=== PATIENT | female | born 1965 | race Caucasian/White ===

== ENCOUNTER 2018-04-05 15:38 | Emergency (ER) | payer OTHER, SELFPAY ==
[2018-04-05 15:40] VITALS: BP 153/111; PULSE 101; RESP 20; TEMP 36.4; O2SAT 98; BMI 20.8
--- NOTE | 2018-04-05 15:55 | ED.DCSUM_ITS ---
- ER Visit Summary Date of Service: 04/05/18 Chief Complaint: Anxiety History of Present Illness: The patient is a 52 F with a history of panic attacks and anxiety. She reports increasing symptoms over the last few days. This feels like her prior panic and anxiety that she dealt with with the of her grandchild. She was on Celexa for several years, and it seemed to help. She was doing better and stopped Celexa about 2 years ago. She denies any history of other mental health illness. She denies any history of suicidal thoughts currently or in the past. Denies any history of hospitalization for psychiatric illness. She is not currently taking anything for this. She denies any medical complaints like pain or breathing issues. Physical Examination: Blood pressure and heart rate are elevated. Otherwise vitals unremarkable. The patient appears anxious but otherwise in no acute distress. She is alert and oriented and appropriate for the situation. Head and neck atraumatic. Cranial nerves grossly intact. Heart regular. Lungs clear. Calves soft and supple. Skin appears normal. Test Results: None indicated emergently Emergency Department Course and Treatment: Patient presents with her anxiety and panic symptoms. She has no other medical complaints. She has a prior history of this. There is no indication for hospitalization or more aggressive treatment. We will restart her Celexa. She may also take Vistaril as needed as the Celexa will take several weeks to take effect. Patient may also taper her Celexa as she restarts it because it may make her symptoms worse. She should call 911 or return for any thoughts of suicide or harming herself. She should return if she has any medical complaints or other associated symptoms. The patient voiced understanding and agreement. She will call her PCP later today or first thing on Sunday to schedule a follow-up appointment. Treatment Plan: As above Disposition: Discharged Impression: 1. Mood disorder This note was generated with [employer] dictation software. It may contain incorrect words, spelling, and punctuation that were not noted in review of the chart prior to signing ED Disposition - Plan for ED Patient: Chief Complaint: Anxiety Referrals: Diego Maya MD [Primary Care Provider] -
--- NOTE | 2018-04-05 15:55 | ED.DEP ---
ED Disposition - Plan for ED Patient: Chief Complaint: Anxiety Instructions: Understanding Anxiety Disorders Prescriptions: Citalopram Hydrobromide [Celexa] 20 mg PO DAILY #30 tab hydrOXYzine pamoate capsule [Vistaril] 25 mg PO TID PRN PRN #10 cap PRN Reason: Anxiety Referrals: Diego Maya MD [Primary Care Provider] -
[2018-04-05 16:12] VITALS: BP 140/94; PULSE 92; RESP 18; O2SAT 97
== END 2018-04-05 16:14 | disposition home or self-care (01) ==
LOC: ED 16:02
PROVIDERS: Emergency Provider Emergency Medicine; Family Provider Family Medicine; PCP Family Medicine
DX: F39 Unspecified mood [affective] disorder (principal); F41.9 Anxiety disorder, unspecified; F32.9 Major depressive disorder, single episode, unspecified
CPT/HCPCS: 99282

== ENCOUNTER 2018-04-07 12:33 | Emergency (ER) | payer OTHER, SELFPAY ==
[2018-04-07 12:34] VITALS: BP 150/92; PULSE 106; RESP 22; TEMP 36.4; O2SAT 99; BMI 20.5
--- NOTE | 2018-04-07 13:02 | ED.VISSUMM ---
- ER Visit Summary Date of Service: 04/07/18 Chief Complaint: Anxiety History of Present Illness: The patient is a 52 F with anxiety symptoms. The patient has a history of anxiety and panic. Her symptoms started about an hour prior to arrival and are almost gone at this point. No suicidal or homicidal thoughts. This is similar to her prior panic attacks. No other symptoms like chest pain, shortness of breath, nausea, vomiting, sweats, or lightheadedness. Patient says he has a lot of stress in her life. She was seen here previously by me several days ago. She had similar symptoms and was restarted on Celexa. I would not expect that her medications have taken effect yet. She also was prescribed hydroxyzine. She took one dose, but it did not help. Physical Examination: Tachycardic at 106. Blood pressure 150/92. Otherwise vitals normal. Afebrile. Alert and oriented. No acute distress. Sitting comfortably. Heart regular. Lungs clear. Abdomen soft. No focal or lateralizing neurologic abnormalities grossly. Thyroid nontender and normal size. Skin appears normal. Patient reports anxiety and is slightly jumpy. Test Results: None indicated Emergency Department Course and Treatment: Symptoms sound similar to prior anxiety and panic. No new or concerning symptoms like chest pain or shortness of breath. No other concerning findings on exam. I believe she is appropriate for outpatient care. Continue her Celexa. Discontinue hydroxyzine. Her prescription database report was negative and she was started on a short course of Klonopin. Risks of this were discussed. Patient will call her PCP tomorrow to arrange follow-up. Return for any new or worsening issues. Treatment Plan: As above Disposition: Discharged Impression: 1. Panic attack This note was generated with [employer] software. It may contain incorrect words, spelling, and punctuation that were not noted in review of the chart prior to signing ED Disposition - Plan for ED Patient: Chief Complaint: Anxiety Referrals: Diego Maya MD [Primary Care Provider] -
--- NOTE | 2018-04-07 13:06 | ED.DEP ---
ED Disposition - Plan for ED Patient: Chief Complaint: Anxiety Instructions: ED Panic Attack Prescriptions: Clonazepam [Clonazepam Tab.Rapdis] 0.25 mg PO BID PRN PRN 3 Days #6 tab.rapdis PRN Reason: Anxiety Referrals: Diego Maya MD [Primary Care Provider] -
[2018-04-07 14:07] VITALS: BP 142/78; PULSE 82; RESP 16; O2SAT 98
== END 2018-04-07 14:08 | disposition home or self-care (01) ==
LOC: ED 13:31
PROVIDERS: Emergency Provider Emergency Medicine; Family Provider Family Medicine; PCP Family Medicine
DX: F41.0 Panic disorder [episodic paroxysmal anxiety] (principal); F32.9 Major depressive disorder, single episode, unspecified; Z79.899 Other long term (current) drug therapy
CPT/HCPCS: 99282

== ENCOUNTER 2021-05-20 05:13 | Emergency (ER) | payer OTHER, SELFPAY ==
[2021-05-20 05:13] VITALS: BP 179/83; PULSE 87; RESP 16; TEMP 36.6; O2SAT 99; BMI 21.7
--- NOTE | 2021-05-20 05:25 | ED.VIS.DENTA ---
HPI History of Present Illness Chief Complaint: Dental Narrative Narrative: Patient presents with left upper mouth pain and swelling. She has poor dentition and she has significant anxiety about dentists. She has no fever or chills. Pain is achy. PFSH PFS Home Medications amoxicillin 500 mg PO TID #20 cap 05/20/21 [Rx Last Taken Unknown] Allergy/AdvReac Type Severity Reaction Status Date / Time No Known Allergies Allergy Verified 05/20/21 05:15 Social History Smoking Status: Never smoker ROS ROS ED ROS Narrative Past medical history: Reviewed Medications: Reviewed Social history: Noncontributory Review of systems: All systems negative except as indicated General: No fever Dental: Dental pain as in HPI ENT: No upper airway congestion, normal voice Neck: No neck pain Hematologic: No easy bleeding or easy bruising EXAM Physical Exam Narrative Exam Narrative: Physical exam General: Patient appears anxious. Head: Normocephalic, Atraumatic Dental: Poor dentition, left upper incisor and first and second molar tenderness, there is facial swelling but no obvious drainable abscess ENT: Moist mucous membranes. Normal soft palate Neck: Supple, Nontender, No lymphadenopathy Cardiovascular: Normal pulses Skin: Normal color, No rash Neurological: No facial droop Const Vital Signs: 05/20/21 05:13 Temperature 97.8 F Temperature Source Oral Pulse Rate 87 Respiratory Rate 16 Blood Pressure 179/83 H Blood Pressure Mean 115 Pulse Ox 99 Oxygen Delivery Method Room Air MDM MDM MDM Narrative Medical decision making narrative: Patient will be treated with antibiotics and discharge. Discharge Plan Triage Chief Complaint: Dental ED Provider: Ankur Ordoñez Dx/Rx/DC Orders Clinical Impression: Dental infection Instructions: Dental Abscess Prescriptions: New amoxicillin 500 mg capsule 500 mg PO TID Qty: 20 RF: 0 Primary Care Provider: Diego Maya Referrals: Diego Maya MD [Primary Care Provider] - Activity Restrictions/Additional Instructions: Follow-up with your dentist in the next 2 to 3 days Disposition Disposition: Home, Self Care
[2021-05-20] MEDS: AMOXICILLIN 500 MG CAPSULE PO (05:29)
[2021-05-20 05:38] VITALS: BP 179/83; PULSE 87; RESP 16; TEMP 36.6; O2SAT 99
== END 2021-05-20 05:38 | disposition home or self-care (01) ==
PROVIDERS: Emergency Provider Emergency Medicine
DX: K04.7 Periapical abscess without sinus (principal)
CPT/HCPCS: 99282

== ENCOUNTER 2023-01-13 18:17 | Emergency (ER) | payer OTHER, SELFPAY ==
[2023-01-13 18:18] VITALS: BP 208/103; PULSE 80; RESP 16; TEMP 36.1; O2SAT 100; BMI 20.7
[2023-01-13 18:27] VITALS: PULSE 76; RESP 18; O2SAT 100
--- NOTE | 2023-01-13 18:44 | EDS_ITS ---
HPI History of Present Illness Chief Complaint: Poisoning Detail of Chief Complaint: Ingestion Informant: patient Narrative Narrative: Patient presents after splashing some cleaning solution in her mouth. She was cleaning with Fabul[place] antibacterial cleaning solution. She dropped the bottle and some of the solution splashed into her mouth. She rinsed her mouth with water. She is anxious and describes some mild burning in her mouth at this time. [facility] Medical History Anxiety Home Medications NK 01/13/23 [History Last Taken Unknown] Allergy/AdvReac Type Severity Reaction Status Date / Time No Known Allergies Allergy Verified 01/13/23 18:24 Social History Smoking Status: Never smoker ROS ROS ED Constitutional Constitutional ED: Denies chills or fever(s) Eyes Eyes: Denies change in vision or discharge from eye(s) ENT ENT ED: Reports other Details: Mild burning in mouth ; Denies discharge from eye(s), rhinorrhea or sore throat Cardiovascular Cardiovascular: Denies chest pain or palpitations Respiratory/Chest Respiratory/Chest: Denies cough or dyspnea Gastrointestinal Gastrointestinal: Denies abdominal pain, nausea or vomiting Genitourinary Genitourinary ED: Denies dysuria Musculoskeletal Musculoskeletal: Denies back pain or extremity pain Integumentary Denies Abrasions or rash Neurologic Neurologic: Denies headache(s) or weakness Psychiatric Psychiatric: Reports anxiety; Denies depression Endocrine Endocrinology: Denies polydipsia or polyuria Allergic/Immunologic Allergic/Immunologic ED: Denies lip swelling or urticaria EXAM Physical Exam Narrative Exam Narrative: Patient is anxious but no acute distress. Speaking full sentences and tolerating secretions well. Const Vital Signs: 01/13/23 18:18 01/13/23 18:25 01/13/23 18:27 Temperature 97.0 F L Temperature Source Temporal Pulse Rate 80 76 Respiratory Rate 16 18 Respiratory Effort Normal Non-Labored Respiratory Pattern Normal Blood Pressure 208/103 H Blood Pressure Mean 138 Pulse Ox 100 100 Oxygen Delivery Method Room Air Room Air 01/13/23 19:24 Temperature Temperature Source Pulse Rate 74 Respiratory Rate 16 Respiratory Effort Respiratory Pattern Blood Pressure 202/113 H Blood Pressure Mean 142 Pulse Ox 100 Oxygen Delivery Method Room Air Positive well nourished and well developed General Appearance ED: well developed HEENT Reports moist mucous membranes HEENT Narrative: No oral lesions appreciated Eyes PERRL and EOMs intact bilaterally Neck no lymphadenopathy Chest Wall inspection of chest normal and palpation of chest normal Resp normal respiratory effort and clear to auscultation bilaterally Cardio regular rate and regular rhythm GI normal to inspection, nondistended, normoactive bowel sounds and non-tender Extremity normal to inspection Neuro oriented x3 and no sensory deficits noted Motor Exam: strength 5/5 throughout Psych Mood & Affect: anxious Skin no rashes or lesions noted MDM MDM MDM Narrative Medical decision making narrative: Patient does report that her blood pressure tends to elevate when she gets anxious. The instructions on the back of the bottle are reviewed and it states to rinse your mouth with water and drink 1 or 2 glasses of water. They also recommend contacting poison control. I spoke with poison control. They report very low risk of any adverse outcomes with this particular cleanser. They recommended having her drink a couple glasses of water and she can be discharged home. Patient was observed for about an hour. Blood pressure has come down to 190/110. Systolic pressure was initially 240 at the time of my first examination. Patient denies any symptoms at this time. She states that she believes her blood pressure is elevated because of her anxiety. She does have access to a blood pressure cuff at home but has not checked it in quite some time. I recommended keeping a journal of her blood pressures and following up with a local primary care physician. I will refer her to the next doc on the no doc list. Return instructions are given. Discharge Plan Triage Chief Complaint: Poisoning ED Provider: Angie Cline Dx/Rx/DC Orders Clinical Impression: Ingestion of nontoxic substance, Hypertension, Anxiety Instructions: ED Anxiety Reaction, ED Hypertension, To Be Confirmed, ED Accidental Ingestion ... Prescriptions: No Action NK Primary Care Provider: Care Physician,No Primary Referrals: Howie Jurado MD [Med Staff - Instructional Materials Director] - 1-2 Weeks Care Physician,No Primary [Primary Care Provider] - Disposition Disposition: Home, Self Care
--- NOTE | 2023-01-13 18:45 | ED.RN ---
PER CARY LUQUE TO GIVE PT TWO GLASSES OF WATER.
[2023-01-13 19:24] VITALS: BP 202/113; PULSE 74; RESP 16; O2SAT 100
[2023-01-13 19:48] VITALS: BP 190/110
== END 2023-01-13 19:51 | disposition home or self-care (01) ==
PROVIDERS: Emergency Provider Emergency Medicine; Visit Provider Emergency Medicine
DX: T65.891A Toxic effect of other specified substances, accidental (unintentional), initial encounter (principal); I10 Essential (primary) hypertension; F41.9 Anxiety disorder, unspecified
CPT/HCPCS: 99282

== ENCOUNTER → 2023-06-18 | Outpatient (CLI) | payer OTHER, SELFPAY ==
[2023-06-18 12:26] LABS: Absolute Neutrophil Count 5.3 X10^3/uL (2.0-7.7); Basophil# 0.04 X10^3/uL; Basophil% 0.5 % (0-1); Eosinophil# 0.06 X10^3/uL; Eosinophils% 0.8 % (0-5); Hematocrit 46.1 % (37-47); Hemoglobin 15.4 g/dL (12.0-15.0); Lymphocyte % 21.2 % (19-41); Mean Corp Hgb Conc 33.4 g/dL (32-36); Mean Corpuscular Hgb 30.3 pg (27.0-32.0); Mean Corpuscular Volume 90.6 fL (81-99); Mean Platelet Vol. 10.4 fl (6.2-12.0); Monocyte# 0.56 X10^3/uL; Monocyte% 7.4 % (0-10); NRBC Flagged by Analyzer 0 % (0-5); Neutrophil # 5.25 X10^3/uL (2.7-7.7); Neutrophil % 69.8 % (47-70); Platelet Count 273 K/mm3 (150-450); RBC Distribution Width CV 12.7 % (11.6-14.6); RBC Distribution Width SD 41.9 fl (35.1-43.9); Red Blood Count 5.09 M/mm3 (4.2-5.4); White Blood Count 7.5 K/mm3 (4.4-11.0)
[2023-06-18 12:58] LABS: Vitamin B12 282 pg/mL (211-911); Vitamin D,25 Hydroxy 13.2 ng/mL
[2023-06-18 14:06] LABS: ALB/GLOB Ratio 0.9 RATIO (0.9-2.4); AST(SGOT) 13 U/L (15-37); Alanine Aminotransfer ALT/SGPT 17 U/L (13-56); Albumin, Serum 3.6 g/dL (3.2-5.0); Alkaline Phosphatase 68 U/L (45-117); Anion Gap 5 (5-15); BUN 12 mg/dL (7-18); Calcium,Total 9.3 mg/dL (8.5-10.1); Chloride 112 mmol/L (98-107); Cholesterol 181 mg/dL (200); EST Glomerular Filtration Rate 90 mL/min (>60); Est Glom Filt Rate - Afr Amer 109 mL/min (>60); Globulin 3.8 g/dL (2.2-4.2); Glucose 110 mg/dL (74-106); High Density Lipoprotein 61 mg/dL; Potassium 3.7 mmol/L (3.5-5.1); Protein, Total 7.4 g/dL (6.4-8.2); Sodium Level 145 mmol/L (136-145); Thyroid Stim Hormone (TSH) 1.98 uIU/mL (0.358-3.74); Triglycerides 96 mg/dL; Very Low Density Lipoprotein 19 mg/dL (5-40)
== END | disposition home or self-care (01) ==
LOC: BIMLAB 09:21
PROVIDERS: PCP Internal Medicine; Referring Provider Internal Medicine; Visit Provider Internal Medicine
DX: F32.1 Major depressive disorder, single episode, moderate (principal); F41.9 Anxiety disorder, unspecified; R41.89 Other symptoms and signs involving cognitive functions and awareness; Z13.6 Encounter for screening for cardiovascular disorders
CPT/HCPCS: 36415; 80053; 80061; 82306; 82607; 84443; 85025

== ENCOUNTER → 2023-06-22 | Outpatient (CLI) | payer OTHER, SELFPAY ==
--- NOTE | 2023-06-22 15:19 | BI_ITS ---
MAMMOGRAPHY - BILATERAL SCREENING REASON FOR EXAM: Female, 57 years old. Routine annual screening examination. PERTINENT HISTORY: Sisters with breast cancer. TECHNIQUE: Digital bilateral breast betzaida (3D mammographic acquisition) in the CC and MLO projections. 2-D mediolateral oblique (MLO) and craniocaudad (CC) views of both breasts were obtained. CAD: Full Field Digital Mammography with Computer Added Detection was performed. COMPARISON: No comparison mammograms available at this time. If any prior films become available, an addendum to this report can be generated. FINDINGS: Breast Composition: The breasts are extremely dense, which lowers the sensitivity of mammography. There are no dominant masses or suspicious calcifications. There is a 4.6 mm well-defined nodular central fatty hilum in the upper outer quadrant of the right breast suggestive of a small lymph node. No other significant abnormalities are identified. BI/SCRN MAMM (CAD)W/BETZAIDA BILAT IMPRESSION: Negative screening mammogram. Yearly followup mammogram recommended. (A) ASSESSMENT CATEGORY: BIRADS Category 2: Benign. A letter regarding these results will be sent to the patient by the facility within 30 days. Approximately 10% of breast cancers are not detected by mammography. A normal mammogram should not delay biopsy of a clinically suspicious abnormality. [id number] Electronically Signed: Jas Arguelles MD at 8:42 EDT ,
== END | disposition home or self-care (01) ==
LOC: OPBI 15:17
PROVIDERS: PCP Internal Medicine; Referring Provider Internal Medicine; Visit Provider Internal Medicine
DX: Z12.31 Encounter for screening mammogram for malignant neoplasm of breast (principal); Z80.3 Family history of malignant neoplasm of breast
CPT/HCPCS: 77063; 77067

== ENCOUNTER → 2023-08-02 | Outpatient (CLI) | payer OTHER, SELFPAY ==
[2023-08-02 12:30] LABS: Vitamin B12 883 pg/mL (211-911)
[2023-08-03 15:08] LABS: Endomysial Antibody IgA Negative (Negative); Immunoglobulin A 286 mg/dL (87-352); t-Transglutaminase IgA <2 U/mL (0-3)
== END | disposition home or self-care (01) ==
LOC: BIMLAB 10:09
PROVIDERS: PCP Internal Medicine; Referring Provider Internal Medicine; Visit Provider Internal Medicine
DX: E55.9 Vitamin D deficiency, unspecified (principal); E53.8 Deficiency of other specified B group vitamins; R41.89 Other symptoms and signs involving cognitive functions and awareness
CPT/HCPCS: 36415; 82306; 82607; 82784; 83516; 86255

== ENCOUNTER → 2024-03-19 | Outpatient (CLI) | payer OTHER, SELFPAY ==
--- NOTE | 2024-03-19 15:31 | BD_ITS ---
STUDY: DUAL ENERGY X-RAY ABSORPTIOMETRY / DXA REASON FOR EXAM: Female, 58 years old. Osteopenia TECHNIQUE: Bone Mineral Density (BMD) measurements of lumbar spine and bilateral hips were obtained. COMPARISON: None. FINDINGS: Lumbar Spine (L1-L4): g/cm2 (0.756) / T-score (-2.6) / Z-score (-1.2) Findings are suggestive of osteoporosis with a high fracture risk. Left Femur Total: g/cm2 (0.672) / T-score (-2.2) / Z-score (-1.3) Left Femoral Neck: g/cm2 (0.490) / T-score (-3.2) / Z-score (-1.9) Right Femur Total: g/cm2 (0.664) / T-score (-2.3) / Z-score (-1.3) Right Femoral Neck: g/cm2 (0.479) / T-score (-3.3) / Z-score (-2.0) BD/Dexa Bone Density Study IMPRESSION: The patient is considered osteoporotic as outlined below according to World Villa Organization (WHO) criteria with a high fracture risk. Reference Information: The T-score is the number of standard deviations above or below the standard which is normal for young adults at their peak bone mineral density. The World Health Organization (WHO) interprets the T-scores as follows: Above -1 Normal bone density Between -1 and -2.5 Osteopenia Equal to / or below -2.5 Osteoporosis As a practical clinical guideline, osteopenia may be graded as follows: Mild -1 through -1.5 Moderate -1.6 through -2.0 Severe -2.1 through -2.4 The Z-score is the number of standard deviations above or below age-matched controls. A Z-score of less than -1.5 would be considered abnormal. References: 1. NIH Osteoporosis and Related Bone Diseases www osteo.org 2. International Society for Clinical Densitometry www iscd.org 3. National Osteoporosis Foundation www nof.org Electronically Signed: Jas Arguelles MD at 8:32 EDT ,
== END | disposition home or self-care (01) ==
LOC: OPBD 15:15
PROVIDERS: PCP Internal Medicine; Referring Provider Internal Medicine; Visit Provider Internal Medicine
DX: M85.80 Other specified disorders of bone density and structure, unspecified site (principal); M81.0 Age-related osteoporosis without current pathological fracture
CPT/HCPCS: 77080

== ENCOUNTER 2024-05-09 11:12 | Outpatient (CLI) | payer OTHER, SELFPAY ==
[2024-05-09 11:19] VITALS: BP 132/73; PULSE 78; RESP 16; TEMP 35.9; O2SAT 99; BMI 16.9
[2024-05-09] MEDS: 0.9% NaCl Peripheral Flush Adult/Peds IV (11:27)
[2024-05-09] MEDS: Zoledronic Acid 5 MG 100 ML 300 MG IV (11:27)
[2024-05-09 11:54] VITALS: BP 142/81; PULSE 80; RESP 16; TEMP 36.1; O2SAT 100
== END 2024-05-09 23:59 | disposition home or self-care (01) ==
LOC: MEDOUTP 11:13
PROVIDERS: PCP Internal Medicine; Referring Provider Internal Medicine; Visit Provider Internal Medicine
DX: M81.0 Age-related osteoporosis without current pathological fracture (principal)
CPT/HCPCS: 96365; A4216; J3489

== ENCOUNTER 2024-07-01 18:47 | Emergency (ER) | payer OTHER, SELFPAY ==
[2024-07-01 18:48] VITALS: BP 172/92; PULSE 79; RESP 18; TEMP 36.4; O2SAT 97; BMI 18.2
[2024-07-01 20:37] VITALS: BP 176/94; PULSE 71; RESP 16; O2SAT 99
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
[2024-07-01 22:00] VITALS: BP 161/96; PULSE 76; RESP 15; O2SAT 96
--- NOTE | 2024-07-01 22:07 | CT_ITS ---
EXAM: CT HEAD WITHOUT INTRAVENOUS CONTRAST CLINICAL INDICATION: Confusion TECHNIQUE: Multiple axial images were obtained of the head without intravenous contrast. This CT exam was performed using one or more of the following dose reduction techniques: automated exposure control, adjustment of the mA and/or kV according to patient size, and/or use of iterative reconstruction technique. RADIATION DOSE: CTDIvol = 44.99 mGy, DLP = 745.49 mGy-cm. COMPARISON: No relevant prior studies available. FINDINGS: BRAIN AND EXTRA-AXIAL SPACES: Unremarkable. No intra- or extra-axial hemorrhage. No evidence of acute infarct. No intracranial mass or mass effect. There is preservation of the wilkinson/white matter interface. Posterior fossa structures are unremarkable. Ventricles are appropriate for age. No hydrocephalus. Basal cisterns are patent. BONES/JOINTS: Unremarkable. No discrete lytic or blastic abnormalities. SINUSES: Unremarkable as visualized. Clear. MASTOID AIR CELLS: Unremarkable. Clear. ORBITS: Visualized globes, extraocular muscles, optic nerves and retrobulbar fat appear unremarkable. CT/Brain/Head without Contrast IMPRESSION: Negative head/brain CT without intravenous contrast. Electronically Signed: Ivory Mondragon MD at 0:05 EDT ,
[2024-07-01 22:33] LABS: Absolute Lymphocyte Count 2.14 X10^3/uL (0.83-4.51); Absolute Neutrophil Count 5.3 X10^3/uL (2.0-7.7); Basophil# 0.04 X10^3/uL; Basophil% 0.5 % (0-1); Eosinophil# 0.08 X10^3/uL; Hematocrit 45.2 % (37-47); Hemoglobin 14.6 g/dL (12.0-15.0); Lymphocyte # 2.14 X10^3/ul (0.83-4.51); Lymphocyte % 26.3 % (19-41); Mean Corp Hgb Conc 32.3 g/dL (32-36); Mean Corpuscular Hgb 28.6 pg (27.0-32.0); Mean Corpuscular Volume 88.6 fL (81-99); Mean Platelet Vol. 9.7 fl (6.2-12.0); Monocyte# 0.58 X10^3/uL; Monocyte% 7.1 % (0-10); NRBC Flagged by Analyzer 0 % (0-5); Neutrophil # 5.27 X10^3/uL (2.7-7.7); Neutrophil % 64.7 % (47-70); Platelet Count 299 K/mm3 (150-450); RBC Distribution Width CV 13.1 % (11.6-14.6); RBC Distribution Width SD 42.7 fl (35.1-43.9); White Blood Count 8.1 K/mm3 (4.4-11.0)
[2024-07-01 22:43] LABS: Bacteria 0 SEEN /hpf (None Seen); Mucous, Urine 0 SEEN /hpf (<or=2+); Red Blood Cells-Urine 0 SEEN /hpf (0-5)
[2024-07-01 22:46] LABS: Alcohol, Blood (Medical)-Serum < 3.0 mg/dL
[2024-07-01 22:51] LABS: AST(SGOT) 16 U/L (15-37); Alanine Aminotransfer ALT/SGPT 18 U/L (13-56); Albumin, Serum 3.5 g/dL (3.2-5.0); Alkaline Phosphatase 62 U/L (45-117); Anion Gap 8 (5-15); BUN 10 mg/dL (7-18); BUN/Creat Ratio 12.3 RATIO (10-20); Calcium,Total 9.2 mg/dL (8.5-10.1); Chloride 107 mmol/L (98-107); Creatinine, Serum 0.81 mg/dL (0.55-1.02); EST Glomerular Filtration Rate 76 mL/min (>60); Est Glom Filt Rate - Afr Amer 92 mL/min (>60); Estimated Creatinine Clearance 51.07 ml/min; Globulin 3.6 g/dL (2.2-4.2); Glucose 134 mg/dL (74-106); Potassium 3.5 mmol/L (3.5-5.1); Protein, Total 7.1 g/dL (6.4-8.2); Sodium Level 141 mmol/L (136-145)
[2024-07-01 22:53] LABS: Color, Urine Yellow (Yellow); Glucose, Dipstick Normal (Normal); Ketone-Dipstick Negative (Negative); Leukocyte Esterase-Dipstick 100 /ul (Negative); Nitrite-Dipstick Negative (Negative); Occult Blood-Urine Negative /ul (Negative); Protein-Dipstick Negative (Negative); Urine Bilirubin Dipstick Negative (Negative); Urine Clarity Clear (Clear); Urine Urobilinogen Normal (Normal)
[2024-07-01 23:09] LABS: Squamous Epithelial Cells - UA 5-10 SEEN /hpf (5-10); White Blood Cells 10-25 SEEN /hpf (0-5)
[2024-07-01 23:22] LABS: Amphetamine Urine VISTA NEGATIVE (<1000 ng/mL); Barbiturate Urine VISTA NEGATIVE (< 200 ng/mL); Benzodiazepine Urine VISTA NEGATIVE (< 200 ng/mL); Cocaine Urine VISTA NEGATIVE (< 300 ng/mL); Ecstacy Urine VISTA NEGATIVE (< 500 ng/mL); Methadone Urine VISTA NEGATIVE (< 300 ng/mL); PCP Urine VISTA NEGATIVE (< 25 ng/mL); THC Urine VISTA NEGATIVE (< 50 ng/mL); Vista UDS pH Range 7
[2024-07-02] VITALS: BP 166/94; PULSE 80; RESP 16; O2SAT 97
[2024-07-02] MEDS: Cephalexin 500 MG Capsule PO (00:13)
[2024-07-02 02:00] VITALS: BP 166/91; PULSE 69; RESP 16; O2SAT 95
[2024-07-02 04:00] VITALS: BP 164/97; PULSE 71; RESP 16; O2SAT 99
[2024-07-02 05:12] VITALS: BP 148/74; PULSE 74; RESP 18; TEMP 36.1; O2SAT 99
== END 2024-07-02 05:12 | disposition home or self-care (01) ==
PROVIDERS: Emergency Provider Emergency Medicine; PCP Internal Medicine; Visit Provider Emergency Medicine
DX: R41.0 Disorientation, unspecified (principal); N39.0 Urinary tract infection, site not specified; F41.9 Anxiety disorder, unspecified; Z79.899 Other long term (current) drug therapy
CPT/HCPCS: 70450; 80053; 80307; 81001; 82077; 85025; 87077; 87086; 87088; 87186; 99283; A4216

== ENCOUNTER → 2024-10-29 | Outpatient (CLI) | payer OTHER, SELFPAY | END | disposition home or self-care (01) | LOC: PAT 13:06 | PROVIDERS: PCP Internal Medicine; Referring Provider Internal Medicine; Visit Provider Internal Medicine Gastroenterology | DX: Z01.818 Encounter for other preprocedural examination (principal) ==